=== PATIENT | male | born 1995 | race Caucasian/White ===

== ENCOUNTER 2020-04-16 18:46 | Emergency (ER) | payer MEDICAID, OTHER ==
[~2020-04-16] VITALS: Ht 182.9 cm; Wt 72.5 kg
[2020-04-16] MEDS ORDERED: DIPH,PERTUSS(ACELL),TET VAC/PF 0.5 ML IM-VACC ONE ×2 (19:30→19:43)
[2020-04-16] MEDS ORDERED: LIDOCAINE-MPF 1%, 5ML INFIL ONE (19:30)
--- NOTE | 2020-04-16 19:40 | NUR ---
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
[2020-04-16] MEDS ORDERED: LIDOCAINE-MPF 1%, 5ML ONE (19:43)
[2020-04-16] MEDS ORDERED: NEOSPORIN OINT. PKT 1 PACKET ONE ×2 (19:44→21:19)
--- NOTE | 2020-04-16 19:48 | NUR ---
PT CAME INTO ED TODAY DUE TO SLICING FINGERS WHILE CUTTING MEAT AT WORK. KNIFE WAS USED TO CUT MEAT PRIOR TO SLICING FINGERS. RIGHT HAND LAST THREE FINGERS ON THE DORSAL SIDE ARE CUT. CMS AND PULSES INTACT, SENSATION INTACT, GROSS NEURO INTACT, NAD, VSS. WOUND CLEANED OUT, PT TOLERATED WELL, PT MEDICATED PER NOV. PT DENIES ADDITIONAL NEEDS AT THIS TIME. PT PLACED ON BP/SPO2 MONITORING, WCTM.
--- NOTE | 2020-04-16 20:44 | NUR ---
RESTING IN [facility], WOUND IRRIGATED, PT NAD, VSS. WCTM.
[2020-04-16 21:49] VITALS: BP 120/72
--- NOTE | 2020-04-16 21:50 | NUR ---
Patient given discharge instructions and they have confirmed that they understand the instructions. Patient ambulatory with steady gait. NAD, P/W/D. DENIES ADDITIONAL QUESTIONS AND NEEDS AT THIS TIME, NO PT BELONGINGS LEFT IN ROOM AT SC.
== END 2020-04-16 21:52 | disposition home or self-care (01) ==
LOC: ED 20:10
DX: S61.212A Laceration without foreign body of right middle finger without damage to nail, initial encounter (principal); S61.214A Laceration without foreign body of right ring finger without damage to nail, initial encounter; F17.200 Nicotine dependence, unspecified, uncomplicated; X58.XXXA Exposure to other specified factors, initial encounter; Y93.89 Activity, other specified; Y92.098 Other place in other non-institutional residence as the place of occurrence of the external cause; Y99.8 Other external cause status
CPT/HCPCS: 12042; 90471; 90715; 99285

== ENCOUNTER 2020-04-26 11:41 | Emergency (ER) | payer OTHER ==
[~2020-04-26] VITALS: Ht 182.9 cm; Wt 73.9 kg
[2020-04-26 11:45] VITALS: BP 113/67
--- NOTE | 2020-04-26 11:58 | NUR ---
PT HERE FOR SUTURE REMOVAL
--- NOTE | 2020-04-26 12:38 | NUR ---
Patient given discharge instructions and they have confirmed that they understand the instructions. Patient ambulatory with steady gait.
== END 2020-04-26 12:39 | disposition home or self-care (01) ==
LOC: ED 12:20
DX: S61.212D Laceration without foreign body of right middle finger without damage to nail, subsequent encounter (principal); S61.214D Laceration without foreign body of right ring finger without damage to nail, subsequent encounter; X58.XXXD Exposure to other specified factors, subsequent encounter
CPT/HCPCS: 99281